=== PATIENT | male | born 1985 | race African-American/Black ===

== ENCOUNTER 2020-11-15 00:03 | Emergency (ER) | payer OTHER ==
[2020-11-15 00:19] VITALS: BP 133/78; PULSE 74; RESP 18; TEMP 98
[2020-11-15] MEDS ORDERED: DIPH,PERTUS(ACELL)TETVAC-LF 0.5 ML VIAL IM ONE (00:22)
[2020-11-15] MEDS ORDERED: Acetaminophen-Codeine 300-30mg TAB PO STA (00:31)
--- NOTE | 2020-11-15 00:35 | ED ---
Lower Extremity Injury HPI - General Chief Complaint: Extremity Injury, Lower Stated Complaint: IHS,Step on nail Time Seen by Provider: 11/15/20 00:21 Source: patient, RN notes reviewed Mode of arrival: wheelchair Limitations: no limitations - History of Present Illness Initial Comments: Patient is a 35-year-old male that presents emergency problem with a left foot show from a nail while at work. He notes that he was wearing work boots when he actually stepped on a nail. He noted that he pulled his foot up immediately as soon as he felt a poke. He noted that he was bleeding minimally but some paper towel in his shoe to soak up the blood. He states that he can feel all of his toes move his foot walk on it with some moderate discomfort. He was in no apparent distress or pain while sitting up in bed during the exam interview. He denied any chest pain shortness of breath headache nausea vomiting diarrhea constipation fever fatigue chills weakness numbness tingling decreased range of motion or sensation in his left foot. - Related Data Previous Rx's Medication Instructions Recorded HYDROcodone/APAP 5-325MG [[place] 5] 1 each PO Q6HR PRN #20 tab 05/04/15 Levofloxacin [Levaquin] 750 mg PO DAILY #10 tab 11/15/20 Allergies Allergy/AdvReac Type Severity Reaction Status Date / Time nafcillin Allergy Rash/Hives Verified 11/15/20 00:19 naproxen [From Naprosyn] Allergy Unknown Verified 11/15/20 00:19 Penicillins Allergy Unknown Verified 11/15/20 00:19 Review of Systems ROS Statement: Those systems with pertinent positive or pertinent negative responses have been documented in the HPI. ROS Other: All systems not noted in ROS Statement are negative. Past Medical History Past Medical History: No Reported History History of Any Multi-Drug Resistant Organisms: None Reported Past Surgical History: No Surgical Hx Reported Past Psychological History: No Psychological Hx Reported Smoking Status: Never smoker Past Alcohol Use History: Occasional Past Drug Use History: None Reported General Exam Limitations: no limitations General appearance: alert, in no apparent distress Head exam: Present: atraumatic, normocephalic, normal inspection Eye exam: Present: normal appearance, PERRL, EOMI. Absent: scleral icterus, conjunctival injection, periorbital swelling Respiratory exam: Present: normal lung sounds bilaterally. Absent: respiratory distress, wheezes, rales, rhonchi, stridor Cardiovascular Exam: Present: regular rate, normal rhythm, normal heart sounds. Absent: systolic murmur, diastolic murmur, rubs, gallop, clicks Extremities exam: Present: normal inspection, full ROM, normal capillary refill. Absent: tenderness, pedal edema, joint swelling, calf tenderness Neurological exam: Present: alert, oriented X3, CN II-XII intact Psychiatric exam: Present: normal affect, normal mood Skin exam: Present: warm, dry, intact, normal color, other (Small puncture wound to the lateral aspect of the plantar surface of the left foot just inferior the third and fourth toe on the ball of the foot). Absent: rash Course Vital Signs 11/15/20 00:12 Temperature 98 F Pulse Rate 74 Respiratory 18 Rate Blood Pressure 133/78 O2 Sat by Pulse 96 Oximetry Medical Decision Making - Medical Decision Making 35-year-old male with nail puncture wound to left foot. X-ray of left foot, Tylenol 3, tetanus vaccination, BAT, urine drug screen ordered Left foot x-ray negative for any acute fractures dislocations chips for bodies. Case discussed with Dr. Michelle, patient can discharge home with follow-up to [facility]. - Radiology Data Radiology results: report reviewed, image reviewed Left foot x-ray: Mild osteoarthritic changes. No acute fracture dislocation obstructive process. If there is concern for several years her osteomyelitis magnetic resonance imaging should be performed. Disposition Clinical Impression: Puncture wound of left foot, Foot pain, left Disposition: HOME SELF-CARE Instructions (If sedation given, give patient instructions): Puncture Wound (ED) Additional Instructions: Please return to the Emergency Department if symptoms worsen or any other concerns. Take antibiotics as prescribed until complete. Follow-up with [facility] as needed. Can take [id number] pain medications for symptom control. Work note given, use as tolerated. Prescriptions: Levofloxacin [Levaquin] 750 mg PO DAILY #10 tab Is patient prescribed a controlled substance at d/c from ED?: No Referrals: Stalin Pardo MD [Primary Care Provider] - 1-2 days Time of Disposition: 01:17
--- NOTE | 2020-11-15 01:15 | XR ---
EXAM: XR Left Foot Complete, 3 or More Views CLINICAL HISTORY: ITS.REASON XR Reason: Nail puncture wound TECHNIQUE: Frontal, lateral and oblique views of the left foot. COMPARISON: No previous studies. FINDINGS: Bones/joints: Mild osteoarthritic changes at the DIP and PIP joints. No acute fracture, dislocation, or destructive process. Soft tissues: Soft tissues are within normal limits. No radiopaque foreign body. IMPRESSION: 1. Mild osteoarthritic changes. 2. No acute fracture, dislocation, or destructive process. 3. If there is concern for cellulitis or osteomyelitis, magnetic resonance imaging should be performed.
== END 2020-11-15 01:34 | disposition home or self-care (01) ==
LOC: EC 00:03
DX: S91.332A Puncture wound without foreign body, left foot, initial encounter (principal); W45.0XXA Nail entering through skin, initial encounter; M19.072 Primary osteoarthritis, left ankle and foot
CPT/HCPCS: 82075; 90715; 96372; 99283

== ENCOUNTER 2024-07-07 12:53 | Emergency (ER) | payer OTHER ==
[2024-07-07 13:26] VITALS: BP 125/83; PULSE 100; RESP 18; TEMP 98.6
--- NOTE | 2024-07-07 13:27 | ED ---
Back Pain HPI - General Source: patient, RN notes reviewed Mode of arrival: ambulatory Limitations: no limitations - History of Present Illness MD Complaint: back injury, fall <Alexus Ramirez - Last Filed: 07/07/24 13:26> - General Source: patient, RN notes reviewed Mode of arrival: ambulatory Limitations: no limitations <Ruben Zapata - Last Filed: 07/07/24 15:37> - General Chief Complaint: Fall Stated Complaint: Fall/Back Time Seen by Provider: 07/07/24 13:20 - History of Present Illness Initial Comments: Quick Note: This is a 38-year-old male who presents to the emergency department for a fall. States that he slipped this morning and fell, injuring his lower back. Denies hitting his head or sustaining any other injuries. (Alexus Ramirez) Patient is a 38-year-old male present to the emergency department for slip and fall. Patient was salting the driveway when he slipped and fell onto his back. Patient has discomfort left lower back. No other area of injury or concern. Patient states discomfort is moderate to severe, increases with movement. No incontinence or retention of bowel or bladder. No weakness or loss of sensation (Ruben Zapata) - Related Data Previous Rx's Medication Instructions Recorded HYDROcodone/APAP 5-325MG [[place] 5] 1 each PO Q6HR PRN #20 tab 05/04/15 Levofloxacin [Levaquin] 750 mg PO DAILY #10 tab 11/15/20 Cyclobenzaprine [Flexeril] 10 mg PO TID PRN #20 tablet 07/07/24 Allergies Allergy/AdvReac Type Severity Reaction Status Date / Time nafcillin Allergy Rash/Hives Verified 07/07/24 13:26 naproxen [From Naprosyn] Allergy Unknown Verified 07/07/24 13:26 Penicillins Allergy Unknown Verified 07/07/24 13:26 Review of Systems ROS Other: All systems not noted in ROS Statement are negative. <Alexus Ramirez - Last Filed: 07/07/24 13:26> ROS Other: All systems not noted in ROS Statement are negative. Constitutional: Denies: fever Eyes: Denies: eye pain ENT: Denies: ear pain Cardiovascular: Denies: chest pain Gastrointestinal: Denies: abdominal pain Musculoskeletal: Reports: as per HPI, back pain <Ruben Zapata Last Filed: 07/07/24 15:37> ROS Statement: Those systems with pertinent positive or pertinent negative responses have been documented in the HPI. Past Medical History Past Medical History: No Reported History History of Any Multi-Drug Resistant Organisms: None Reported Past Surgical History: No Surgical Hx Reported Past Psychological History: No Psychological Hx Reported Smoking Status: Never smoker Past Alcohol Use History: Occasional Past Drug Use History: None Reported <Alexus Ramirez - Last Filed: 07/07/24 13:26> General Exam <Alexus Ramirez - Last Filed: 07/07/24 13:26> Limitations: no limitations General appearance: alert, in no apparent distress Head exam: Present: normocephalic Eye exam: Present: normal appearance Neck exam: Present: normal inspection. Absent: tenderness Respiratory exam: Present: normal lung sounds bilaterally Cardiovascular Exam: Present: regular rate, normal rhythm GI/Abdominal exam: Present: soft. Absent: tenderness, pulsatile mass Extremities exam: Present: normal inspection. Absent: tenderness Back exam: Present: tenderness (Patient has diffuse lumbar tenderness, mostly midline however somewhat lateral more to the left and minimal just below the left CVA), vertebral tenderness Psychiatric exam: Present: normal affect, normal mood Skin exam: Present: normal color <Ruben Zapata Last Filed: 07/07/24 15:37> - General Exam Comments Initial Comments: Visual Physical Exam Vital signs reviewed General: Well-appearing, nontoxic, no acute distress. Head: Normocephalic, atraumatic Eyes: PERRLA, EOMI ENT: Airway patent Chest: Nonlabored breathing Skin: No visual rash, normal skin tone Neuro: Alert and oriented 3 Musculoskeletal: No gross abnormalities (Alexus Ramirez) Course Vital Signs 07/07/24 13:24 Temperature 98.6 F Pulse Rate 100 Respiratory 18 Rate Blood Pressure 125/83 O2 Sat by Pulse 97 Oximetry Medical Decision Making <Alexus Ramirez - Last Filed: 07/07/24 13:26> - Lab Data Result diagrams: 07/07/24 14:30 07/07/24 14:30 <Ruben Zapata Last Filed: 07/07/24 15:37> - Medical Decision Making I performed the QuickNote portion of this chart. Signed Alexus Ramirez PA-C. (Alexus Ramirez) MDM back was pt. sent in by a medical professional or institution ([facility], FORGE OPERATOR HELPER, urgent care, hospital, or senior care...) When possible be specific @ -No Did you speak to anyone other than the patient for history (EMS, parent, family, police, friend...)? What history was obtained from this source @ -No Did you review nursing and triage notes (agree or disagree)? Why? @ -I reviewed and agree with nursing and triage notes Were old charts reviewed (outside hosp., previous admission, EMS record, old EKG, old radiological studies, urgent care reports/EKG's, senior care records)? Report findings @ -No old charts were reviewed Differential Diagnosis (chest pain, altered mental status, abdominal pain women, abdominal pain men, vaginal bleeding, weakness, fever, dyspnea, syncope, headache, dizziness, GI bleed, back pain, seizure, CVA, palpatations, mental health, musculoskeletal)? @ -Differential Back Pain: Strain, zoster, cauda equina syndrome, epidural abscess, vertebral osteomyelitis, discitis, fracture, subluxation, disc herniation, DJD, spinal stenosis, dissection, AAA, pancreatitis, peptic ulcer disease, pyelonephritis, kidney stone, this is not meant to be an all-inclusive list. EKG interpreted by me (3pts min.). @ -As above X-rays interpreted by me (1pt min.). @ -X-ray shows questionable changes T12 CT interpreted by me (1pt min.). @ -CT scan abdomen pelvis without acute abnormality that also includes T12 level U/S interpreted by me (1pt. min.). @ -None done What testing was considered but not performed or refused? (CT, X-rays, U/S, l abs)? Why? @ -None What meds were considered but not given or refused? Why? @ -None Did you discuss the management of the patient with other professionals (professionals i.e. [facility] Redd, FORGE OPERATOR HELPER, lab, RT, psych nurse, social worker aide, ticket attendant, teacher, workers' compensation hearings officer, counseling case manager)? Give summary @ -No Was smoking cessation discussed for >3mins.? @ -No Was critical care preformed (if so, how long)? @ -No Were there social determinants of health that impacted care today? How? (Homelessness, low income, unemployed, alcoholism, drug addiction, transportation, low edu. Level, literacy, decrease access to med. care, halfway, rehab)? @ -No Was there de-escalation of care discussed even if they declined (Discuss DNR or withdrawal of care, Hospice)? DNR status @ -No What co-morbidities impacted this encounter? (DM, HTN, Smoking, COPD, CAD, Cancer, CVA, ARF, Chemo, Hep., AIDS, mental health diagnosis, sleep apnea, morbid obesity)? @ -None Was patient admitted / discharged? Hospital course, mention meds given and route, prescriptions, significant lab abnormalities, going to OR and other pertinent info. @ -Patient presents with low back pain following slip and fall. X-ray questionable however CT scan unremarkable. Patient will be discharged. Patient updated. Undiagnosed new problem with uncertain prognosis? @ -No Drug Therapy requiring intensive monitoring for toxicity (Heparin, Nitro, Insu arvind, Cardizem)? @ -No Were any procedures done? @ -No Diagnosis/symptom? @ -Low back pain, fall Acute, or Chronic, or Acute on Chronic? @ -Acute, acute Uncomplicated (without systemic symptoms) or Complicated (systemic symptoms)? @ -Default Side effects of treatment? @ -No Exacerbation, Progression, or Severe Exacerbation? @ -No Poses a threat to life or bodily function? How? (Chest pain, USA, SC, pneumonia, PE, COPD, DKA, ARF, appy, cholecystitis, CVA, Diverticulitis, Homicidal, Suicidal, threat to staff... and all critical care pts) @ -No (Ruben Zapata) - Lab Data Lab Results 07/07/24 07/07/24 Range/Units 14:30 14:30 WBC 5.2 (3.8-10.6) k/uL RBC 5.50 (4.30-5.90) m/uL Hgb 17.2 (13.0-17.5) gm/dL Hct 52.1 (39.0-53.0) % MCV 94.7 (80.0-100.0) fL MCH 31.3 (25.0-35.0) pg MCHC 33.0 (31.0-37.0) g/dL RDW 12.5 (11.5-15.5) % Plt Count 212 (150-450) k/uL MPV 8.1 Neutrophils % 47 % Lymphocytes % 41 % Monocytes % 8 % Eosinophils % 2 % Basophils % 1 % Neutrophils # 2.4 (1.3-7.7) k/uL Lymphocytes # 2.1 (1.0-4.8) k/uL Monocytes # 0.4 (0-1.0) k/uL Eosinophils # 0.1 (0-0.7) k/uL Basophils # 0.0 (0-0.2) k/uL Sodium 141 (137-145) mmol/L Potassium 4.4 (3.5-5.1) mmol/L Chloride 107 (98-107) mmol/L Carbon Dioxide 25 (22-30) mmol/L Anion Gap 9 mmol/L BUN 18 (9-20) mg/dL Creatinine 1.03 (0.66-1.25) mg/dL Est GFR (CKD-EPI)AfAm >90 (>60 ml/min/1.73 sqM) Est GFR (CKD-EPI)NonAf >90 (>60 ml/min/1.73 sqM) Glucose 83 (74-99) mg/dL Calcium 10.2 (8.4-10.2) mg/dL Disposition <Alexus Ramirez - Last Filed: 07/07/24 13:26> Is patient prescribed a controlled substance at d/c from ED?: No Time of Disposition: 15:36 <Ruben Zapata - Last Filed: 07/07/24 15:37> Clinical Impression: Fall, Low back pain Disposition: HOME SELF-CARE Condition: Stable Instructions (If sedation given, give patient instructions): Acute Low Back Pain (ED) Additional Instructions: Prescription for muscle relaxer sent to pharmacy. [id number] Tylenol and Motrin as needed. Please follow-up with primary care physician in the next couple of days for recheck. Number for back doctor provided. Return for increased pain, weakness, loss of control of bowel or bladder, worsening symptoms or any other concerns. Prescriptions: Cyclobenzaprine [Flexeril] 10 mg PO TID PRN #20 tablet PRN Reason: Pain Referrals: Marissa Sorto DO [Doctor of Osteopathic Medicine] - 1-2 days Forms: Area PCPs
--- NOTE | 2024-07-07 13:58 | XR ---
EXAMINATION TYPE: XR lumbar spine 2 or 3V DATE OF EXAM: 07/07/2024 1:50 PM COMPARISON: Nonee CLINICAL INDICATION: Male, 38 years old with history of Fall; [facility] TECHNIQUE: XR lumbar spine 2 or 3V - Frontal, lateral and coned in L5-S1 lateral views of the spine. FINDINGS/IMPRESSION: 1. Slight wedging of the T12 vertebral body correlate with acute back pain. Consider MRI to evaluate for bony edema which. 2. Multilevel degeneration changes of spine with osteophyte formation and joint and disc space narro wing with facet joint arthropathy. [facility], , 07/07/2024 1:56 PM
[2024-07-07] MEDS: HYDROmorphone 1 MG/ML 1 ML SYRINGE IVP STA (14:31)
[2024-07-07 15:00] LABS: Basophils % (A) 1 %; Eosinophils # (A) 0.1 k/uL (0-0.7); Eosinophils % (A) 2 %; HCT 52.1 % (39.0-53.0); HGB 17.2 gm/dL (13.0-17.5); Lymphocytes # (A) 2.1 k/uL (1.0-4.8); Lymphocytes % (A) 41 %; MCH 31.3 pg (25.0-35.0); MCV 94.7 fL (80.0-100.0); Mean Platelet Volume 8.1; Monocytes # (A) 0.4 k/uL (0-1.0); Monocytes % (A) 8 %; Neutrophils # (A) 2.4 k/uL (1.3-7.7); Neutrophils % (A) 47 %; Platelet Count 212 k/uL (150-450); RDW 12.5 % (11.5-15.5); WBC 5.2 k/uL (3.8-10.6)
[2024-07-07 15:07] LABS: African American GFR (CKD) >90 (>60 ml/min/1.73 sqM); Anion Gap 9 mmol/L; Blood Urea Nitrogen 18 mg/dL (9-20); Calcium 10.2 mg/dL (8.4-10.2); Carbon Dioxide 25 mmol/L (22-30); Chloride 107 mmol/L (98-107); Glucose 83 mg/dL (74-99); Non-African American GFR(CKD) >90 (>60 ml/min/1.73 sqM); Potassium 4.4 mmol/L (3.5-5.1); Sodium 141 mmol/L (137-145)
--- NOTE | 2024-07-07 15:24 | CT ---
EXAMINATION TYPE: CT abdomen pelvis w con DATE OF EXAM: 07/07/2024 3:06 PM COMPARISON: None available. CLINICAL INDICATION: Male, 38 years old with history of fall, lumbar and left cva pain; Pt comes to [facility] with complaint of lower left back pain after a slip and fall on ice this morning. TECHNIQUE: Axial CT abdomen pelvis w con;Sagittal and coronal reformats were created on a separate w orkstation. Contrast used:100cc mL of Isovue 300 with IV Contrast, (none if empty) Oral contrast used: without Oral Contrast (none if empty) CT DLP: 1501.6 mGycm, Automated exposure control for dose reduction was used. FINDINGS: LOWER CHEST: Unremarkable ABDOMEN LIVER: Unremarkable GALLBLADDER AND BILE DUCTS: Unremarkable. PANCREAS: Unremarkable. SPLEEN: Unremarkable. ADRENAL GLANDS: Unremarkable. KIDNEYS AND URETERS: No evidence of hydronephrosis or renal calculus. The ureters are unremarkable. PELVIS BLADDER: No evidence for wall thickening or mass given limitations of exam. REPRODUCTIVE: Unremarkable. ABDOMEN & PELVIS STOMACH AND BOWEL: Stomach and duodenum are unremarkable No evidence of bowel obstruction. PERITONEUM/RETROPERITONEUM: No evidence of pneumoperitoneum or free fluid. VASCULATURE: No evidence of aortic aneurysm. MUSCULOSKELETAL: No acute osseous abnormalities LYMPH NODES: No gross evidence for lymphadenopathy. SOFT TISSUE/ABDOMINAL WALL: Unremarkable IMPRESSION: No acute abnormality in the abdomen/pelvis. [facility], , 07/07/2024 3:22 PM
[2024-07-07] MEDS: ACET/COD 300 MG/30 MG STARTER PACK 6 TAB BTL PO STA (15:52)
== END 2024-07-07 16:21 | disposition home or self-care (01) ==
LOC: EC 12:53
DX: M54.50 Low back pain, unspecified (principal); Z88.0 Allergy status to penicillin; Z88.6 Allergy status to analgesic agent; W01.0XXA Fall on same level from slipping, tripping and stumbling without subsequent striking against object, initial encounter
CPT/HCPCS: 36415; 80048; 85025; 72100; 74177; 99284; 96374; J1171; Q9967